=== PATIENT | male | born 1955 | race Hispanic/Latino ===

== ENCOUNTER 2018-08-18 18:51 | Emergency (ER) | payer BC ==
[2018-08-18] MEDS ORDERED: Lidocaine 1% w/Epinephrine 1:100K 20 ML VIAL ONE (19:32)
[2018-08-18] MEDS ORDERED: Adacel (T-DAP) 0.5 ML SYRINGE ONE (20:10)
[2018-08-18] MEDS ORDERED: Amoxicillin/Potassium Clav 875 MG TAB ONE (20:21)
== END 2018-08-18 21:15 | disposition home or self-care (01) ==
LOC: ERS 18:51
DX: S81.851A Open bite, right lower leg, initial encounter (principal); S81.811A Laceration without foreign body, right lower leg, initial encounter; Z23 Encounter for immunization; W54.0XXA Bitten by dog, initial encounter
CPT/HCPCS: 12002; 90471; 90715; J2001

== ENCOUNTER 2020-02-16 11:33 | Outpatient (CLI) | payer BC ==
--- NOTE | 2020-02-16 12:44 | RAD ---
Cervical spine 3 views: 02/16/2020 COMPARISON: None HISTORY: Fatigue, hypertension, osteoarthropathy FINDINGS: There is degenerative change at the atlantoaxial interspace. Open-mouth odontoid view demon strates a normal-appearing dens and C1-2 articulation. There is mild multilevel disc space narrowing including C2-3, C3-4, C4-5, and C5-6. No anterolisthesis or retrolisthesis. No prevertebral soft tissue swelling. Multilevel mid cervical s pine facet and uncovertebral osteophyte formation, most prominent at C4-5 and C5-6 IMPRESSION: Degenerative changes. If there are radicular symptoms, MRI may be beneficial.
--- NOTE | 2020-02-16 12:58 | RAD ---
2 views of the chest: 02/16/2020 COMPARISON: None HISTORY: Fatigue and hypertension FINDINGS: No pneumothorax or pleural fluid is seen. There is no focal consolidation or alveolar edema . Heart and mediastinal contours appear grossly unremarkable. There is a nodule in the right lung base measuring 8 mm. IMPRESSION: Nodular density in the right lung base. This may represent a nipple shadow. A follow-up f rontal radiograph with nipple markers advised. CODE T
--- NOTE | 2020-02-16 14:58 | RAD ---
LEFT HAND 3 VIEWS: Date: 02/16/2020 HISTORY: Hypertrophic osteoarthropathy. FINDINGS: Mild degenerative change at the first carpometacarpal joint. MCP joints are preserved. Minimal spurring at the MCP joints. IP joints show minimal degenerative judy nge at the DIP joints with mild osteophytes at the DIP joints of the second and third digits. Scattered subchondral cystic changes are seen at the PIP joints of the fourth and fifth digits and at the MCP joints fourth digit. IMPRESSION: There are mild arthritic changes as described. POS: MARK
--- NOTE | 2020-02-16 14:59 | RAD ---
RIGHT HAND: 02/16/20 Three views. HISTORY: Hypertrophic osteoarthropathy. Mild DJD at the first carpometacarpal. PCP joints are unremarkable with minimal spurring. There is mild DJD at the IP joint of the thumb with small osteophytes projecting dorsally. The other IP joints appear unremarkable with no other significant degenerative change. IMPRESSION: Mild osteoarthritic changes as described. POS: AGW
== END 2020-02-16 11:34 | disposition home or self-care (01) ==
LOC: BICRAD 11:33
PROVIDERS: ATTEND Family Medicine
DX: I10 Essential (primary) hypertension (principal); R53.83 Other fatigue; M89.49 Other hypertrophic osteoarthropathy, multiple sites; M19.041 Primary osteoarthritis, right hand; M19.042 Primary osteoarthritis, left hand; J98.4 Other disorders of lung
CPT/HCPCS: 71046; 72050

== ENCOUNTER 2020-02-29 10:26 | Outpatient (CLI) | payer BC ==
--- NOTE | 2020-02-29 11:57 | RAD ---
1 VIEW CHEST WITH ARMS RAISED AND LOWERED FOR A TOTAL OF 2 IMAGES: Date: 02/29/2020 HISTORY: Follow-up abnormal chest x-ray. Correlation made to exam of 02/16/2020, which revealed a nodular density in the right lung. Current exam is performed with nipple markers, with arms lowered and arms raised. FINDINGS: Nipple markers confirm that the nodular opacity seen on the prior exam represents a nipple shadow. Th e lungs are clear. No acute finding. IMPRESSION: The previously questioned nodular density represents a nipple shadow. No acute process. POS: AGW
== END 2020-02-29 10:27 | disposition home or self-care (01) ==
LOC: BICRAD 10:26
PROVIDERS: ATTEND Family Medicine
DX: R91.8 Other nonspecific abnormal finding of lung field (principal)
CPT/HCPCS: 71045

== ENCOUNTER 2024-01-26 13:42 | Emergency (ER) | payer BC | END 2024-01-26 14:07 | disposition left against medical advice (07) | LOC: ERS 13:42 | DX: Z53.21 Procedure and treatment not carried out due to patient leaving prior to being seen by health care provider (principal) ==